=== PATIENT | female | born 1950 | race Caucasian/White ===

== ENCOUNTER → 2017-06-14 | Outpatient (CLI) | payer MEDICARE, OTHER ==
[~2017-06-14] MED LIST: ASPIRIN325; CO Q-10100 MG PO; Calcium PO; DETROL LA4 MG PO; DOCUSATE SODIU100 MG PO; ENOXAPARIN30 MG/0.3; FUROSEMIDE 20 M20 M1 PO; LEVOTHYROXIN0.137 M1 PO; LIPO PO; LISINOPRIL-HCT1 EACH PO; NAPROSYN375 MG PO; NORCO 5-325 TA1 EACH PO; OXYCODONE HCL5 M1 PO; POTASSIUM99 M1 PO; PRILOSEC 20 MG20 MG PO; VITAMIN D1000 UNI1 PO; VITAMIN D32000 UNIT PO; [UNRECOGNIZED DRUG - OTHER] PO; [UNRECOGNIZED DRUG - OTHER] PO
== END ==
LOC: M.NUC 06-09 09:44
DX: Z12.31 Encounter for screening mammogram for malignant neoplasm of breast (principal); Z96.641 Presence of right artificial hip joint

== ENCOUNTER → 2018-03-18 | Outpatient (CLI) | payer MEDICARE, OTHER | LOC: M.MRI 12:54 | DX: S83.211A Bucket-handle tear of medial meniscus, current injury, right knee, initial encounter (principal); M17.11 Unilateral primary osteoarthritis, right knee; M25.461 Effusion, right knee; M71.21 Synovial cyst of popliteal space [Baker], right knee; X58.XXXA Exposure to other specified factors, initial encounter; Y93.89 Activity, other specified; Y92.89 Other specified places as the place of occurrence of the external cause; Y99.8 Other external cause status; W10.8XXA Fall (on) (from) other stairs and steps, initial encounter ==

== ENCOUNTER → 2018-03-25 | Outpatient (CLI) | payer MEDICARE, OTHER | LOC: M.LAB 04:31 | DX: Z01.812 Encounter for preprocedural laboratory examination (principal) ==

== ENCOUNTER → 2018-10-12 | Outpatient (CLI) | payer MEDICARE, OTHER ==
--- NOTE | 2018-10-13 08:42 | CARDNUC ---
[place] [address] CARDIAC NUCLEAR IMAGING REPORT Name: JUNIOR ZAPIEN Room: [facility]#: [id number] Admission: 10/12/18 Attend Phys: Mc Pinzon MD Discharge: Date of : 52 Date of Service: 10/13/18 0842 Report #: [id number] THIS REPORT FOR: //name// APPROVED REPORT Study performed: 10/12/2018 10:15:43 Exam: Nuclear Stress Test Indication: Chest pain, Palpitations , Dyspnea Patient Location: Out-Patient Stress Tech: Sarah Augustine Stress Nurse: Irene Sanabria RN Ht: 5 ft 6 in Wt: 185 lbs BSA: 1.93 m2 BMI: 29.85 Medical History Medical History: hypertenson Medications: lisinopril, lisinopril/hctz Allergies: penicillin, sulfa, codeine Cardiac Risk Factors: age, hypertension,family hx Exercise History: Physically active Stress Test Details Stress Test: Pharmacologic stress testing performed using 0.4 mg of regadenoson per 5 mL given IV over 10 seconds. Reason for pharmacologic stress test: physical limitation. HR Resting HR: 78 bpm Max Heart Rate (APMHR): 154 bpm Max HR Achieved: 110 bpm Target HR (85% APMHR): 130 bpm % of APMHR: 71 Recovery HR: 98 bpm BP Resting BP: 191/95 mmHg Max BP: 178/76 mmHg ECG Resting ECG: Sinus Rhythm Stress ECG: Sinus Tachycardia ST Change: None Arrhythmia: None Recovery ECG: Sinus Rhythm Recovery ST Change: [place] [address] CARDIAC NUCLEAR IMAGING REPORT Name: JUNIOR ZAPIEN Room: [facility]#: [id number] Admission: 10/12/18 Attend Phys: Mc Pinzon MD Discharge: Date of : 52 Date of Service: 10/13/18 0842 Report #: [id number] Recovery Arrhythmia: None Clinical Reason for Termination: Completed protocol Exercise duration: 0 min sec Exercise capacity: 1 METs the patient tolerated Lexiscan infusion without significant symptoms. Nurse Comments pt had recent knee replacement and hip surgery Stress ECG Conclusion The baseline 12-lead EKG show sinus rhythm without significant ST or T wave abnormality. EKGs obtained during and post Lexiscan infusion show sinus rhythm and sinus tachycardia with no significant ST or T wave changes when baseline. There were no stress-induced arrhythmias. NM EXAM: Myocardial Perfusion REST/STRESS Imaging Protocol: Rest Tc-99m/Stress Tc-99m 1 day Resting Data Rest SPECT myocardial perfusion imaging was performed in supine position 30 minutes following the intravenous injection of 12.0 mCi of Tc-99m Sestamibi. Time of rest injection: 07:50 The images were gated to evaluate regional wall motion and calculate left ventricular ejection fraction. Administration Route: IV Administration Site: Right Wrist Pharmacologic Stress Pharmacologic stress test was performed by injecting Regadenoson 0.4 mg IV push followed by the intravenous injection of 29.0 mCi of Tc-99m Sestamibi. Time of stress injection: 10:25 Administration Route: IV Administration Site: Right Wrist Heart Rate at time of stress injection: 110 bpm. Gated Stress SPECT was performed 40 minutes after stress injection. The images were gated to evaluate regional wall motion and calculate left ventricular ejection fraction. Prone [place] [address] CARDIAC NUCLEAR IMAGING REPORT Name: JUNIOR ZAPIEN Room: [facility]#: [id number] Admission: 10/12/18 Attend Phys: Mc Pinzon MD Discharge: Date of : 52 Date of Service: 10/13/18 0842 Report #: [id number] Study Quality Study: Good Artifact: No artifact Study Data At rest, the left ventricular ejection fraction was 73%.. Post stress, the left ventricular ejection was 81%.. TID = 0.96. Perfusion Normal left ventricular perfusion. Wall Motion Normal left ventricular wall motion. Nuclear Conclusion ECG Findings: negative for ischemia Clinical Findings: negative for ischemia Nuclear Findings: negative for ischemia Exercise Capacity: not assessed Left Ventricular Function: normal Risk Study: low Myocardial perfusion images show no defect to suggest infarct or ischemia. Left ventricular systolic function is normal on gated studies. This is a low risk study. <Conclusion> The baseline 12-lead EKG show sinus rhythm without significant ST or T wave abnormality. EKGs obtained during and post Lexiscan infusion show sinus rhythm and sinus tachycardia with no significant ST or T wave changes when baseline. There were no stress-induced arrhythmias. <ELECTRONICALLY SIGNED> By: Gopi Solano MD, [facility] 10/13/18 0842 1 Gopi Solano MD, FACC /INF
== END ==
LOC: M.NUC 10-05 12:12 → M.CRD 08:00 → M.NUC 08:30
DX: R07.89 Other chest pain (principal); R06.00 Dyspnea, unspecified; R00.2 Palpitations

== ENCOUNTER 2018-11-25 11:08 | Inpatient (IN) | payer MEDICARE, OTHER ==
[2018-11-10 08:58] LABS: ABSOLUTE BASOPHILS 0.1 thou/uL (0.0-0.2); ABSOLUTE EOSINOPHILS 0.4 thou/uL (0.0-0.7); ABSOLUTE LYMPHOCYTES 2.9 thou/uL (0.8-5.3); ABSOLUTE MONOCYTES 0.7 thou/uL (0.0-1.2); ABSOLUTE NEUTROPHILS 4.9 thou/uL (1.6-8.1); BASOPHILS 0.7 %; HEMATOCRIT 44.2 % (37.0-47.0); HEMOGLOBIN 15.3 gm/dL (12.0-15.0); LYMPHOCYTES 32.8 %; MCH 32.3 pg (26.0-34.0); MCHC 34.7 g/dL (28.0-37.0); MCV 93.3 fL (80.0-100.0); MONOCYTES 7.5 %; NUCLEATED RBCS 0 /100WBC; PLATELET COUNT* 359 thou/uL (150-400); RBC 4.74 mil/uL (4.20-5.00); RDW-CV 13.6 % (10.5-14.5); WBC 8.8 thou/uL (4.0-11.0)
[2018-11-10 09:07] LABS: CALCIUM 9.2 mg/dL (8.5-10.1); CREATININE 0.8 mg/dL (0.6-1.3); POTASSIUM 4.5 mmol/L (3.5-5.1)
[2018-11-10 09:12] LABS: ALBUMIN 4.3 g/dL (3.4-5.0); TOTAL BILIRUBIN 0.4 mg/dL (<0.1-1.0)
--- NOTE | 2018-11-10 18:05 | EKG ---
[place] [address] ELECTROCARDIOGRAM REPORT Name: JUNIOR ZAPIEN Room: [facility]#: [id number] Admission: Attend Phys: Bo Farris DO Discharge: Date of : 52 Report #: [id number] THIS REPORT FOR: //name// [facility] Test Date: 2018-11-10 Test Time: 09:11:38 Pat Name: JUNIOR ZAPIEN Department: Room: Gender: F Health Program Specialist: : 1950 Requested By: Bo Farris Order Number: [id number] Reading : Abner Jaramillo Measurements Intervals [place] Rate: 87 P: 34 MN: 174 QRS: -37 QRSD: 97 T: 38 QT: 383 QTc: 461 Interpretive Statements Sinus rhythm Left axis deviation Compared to ECG 11/10/2012 15:50:00 Left-axis deviation now present Electronically Signed On 11-10-2018 18:05:35 CDT by Abner Jaramillo [email or web address] <ELECTRONICALLY SIGNED> By: Tonio Jaramillo MD, [facility] 11/10/18 1805 0 0 Tonio Jaramillo MD, FACC /EPI
[2018-11-11 02:06] LABS: GLYCOHEMOGLOBIN (HGB A1C) 5.3 % (4.8-5.6)
[~2018-11-25] VITALS: Ht 167.6 cm; Wt 94.8 kg
[~2018-11-25 11:08] MED LIST changes: +LISINOPRIL10 MG PO; +SYNTHROID112 MC1 PO; +TOLTERODINE TART4 MG PO
[2018-11-25 12:00] VITALS: BP 168/79
[2018-11-25 18:20] VITALS: BP 178/82
--- NOTE | 2018-11-25 18:20 | NUR ---
RECEIVED PT REPORT FROM PACU 0. PT HAD R TOTAL KNEE REPLACEMENT. GET SITUATED TO ROOM. TELE IN PLACED. TRACING SR. PT AOX4, UP WITH ASSIST, O2 SAT 90'S 3L NC. PT COMPLAINS OF PAIN. LAST BM 11/25/18. LUNG SOUND CLEAR. ADMISSION ASSESSMENT CHARTED. GIVE REPORT TO KARY.
[2018-11-25 19:40] VITALS: BP 148/81
[2018-11-26] VITALS (8 sets, daily range): BP systolic 117–166; BP diastolic 54–95
[2018-11-26 04:29] LABS: HEMATOCRIT 36.8 % (37.0-47.0); HEMOGLOBIN 12.7 gm/dL (12.0-15.0); MCH 32.5 pg (26.0-34.0); MCHC 34.6 g/dL (28.0-37.0); MCV 94.1 fL (80.0-100.0); MPV 7.2 fl. (7.2-11.1); RBC 3.91 mil/uL (4.20-5.00); RDW-CV 12.9 % (10.5-14.5); WBC 9.2 thou/uL (4.0-11.0)
[2018-11-26 04:42] LABS: CALCIUM 8.8 mg/dL (8.5-10.1); CREATININE 0.7 mg/dL (0.6-1.3); MAGNESIUM 1.8 mg/dL (1.8-2.4); POTASSIUM 3.9 mmol/L (3.5-5.1)
--- NOTE | 2018-11-26 07:31 | NUR ---
PT CARE ASSUMED AT 1930. SAT MAINTAINED IN O2. ALERT AND ORIENTED X4. CALL LIGHT WITHIN REACH AND BED IN LOW POSITION. C/O PAIN, MEDICTAION GIVEN PER EMAR. HOURLY ROUNDING DONE FOR PT SAFETY.
--- NOTE | 2018-11-26 14:35 | NUR ---
ASSUMED PT CARE AT 0800, AOX4, UP WITH ASSIST, O2 SAT 90'S 4L NC. PT M/S. PT COMPLAINS OF R KNEE PAIN. PAIN MEDS GIVEN. VSS, AM ASSESSMENT CHARTED. MEDS GIVEN PER MAR, CALL LIGHT WITHIN REACH, WILL CONTINUE TO MONITOR.
--- NOTE | 2018-11-26 15:38 | NUR ---
MET WITH PT TO DISCUSS HOME SITUATION/DC PLANNING. PT LIVES ALONE, HER S/O FITO WILL BE 'IN AND OUT' TO ASSIST WITH HER CARES. SHE HAS WALKER AND SHOWER SEAT. PT [facility] AND WANTS TO USE THEM AGAIN. FAXED OVER INITIAL REFERRAL. THEY WILL NEEDS CALLED AND DC ORDERS FAXED WHEN DC'D. CALLED IN ELIQUIS SCRIPT TO [facility]. AWAIT CALL BACK WITH COST. ANTICIPATE DC IN 1-2 DAYS. WILL FOLLOW [facility] [phone] FAX [phone] [facility] [phone]
--- NOTE | 2018-11-26 18:53 | NUR ---
165: PATIENT REC'D TO RM 108 FROM TELE FLOOR, PER BED W/ TELE STAFF PRESENT. REPORT REC'D FROM CASE ASSISTANT. PATIENT ALERT AND ORIENTED X4, VISITOR PRESENT. IV SITE NOTED INTACT, SCANT AMT RED DRNG NOTED UNDER DRSG. SURG KNEE DRSG NOTED WNL, CDI. THIGH HIGH TEDS ON BLE. O2 4L/NC. NO SOB NOTED. 1852: PATIENT PLEASANT AND COOPERATIVE. FT PUMP SCDs ON BLE. CALL LIGHT IN REACH. 02 4L/NC SAT 94%. +RETURN DEMO ON USE OF INC SPIROMETER. PATIENT ENC TO USE 10X/HR WHILE AWAKE, ENC TO CDB. PATIENT STATES VERBALLY OF BREATHING EDUCATION. CURRENTLY RESTING IN BED. SEE MAR. HRLY ROUNDS DONE. ~LIZETTERN
[2018-11-27] VITALS: BP 161/78
[2018-11-27 03:47] VITALS: BP 123/72
[2018-11-27 04:34] LABS: HEMATOCRIT 33.1 % (37.0-47.0); HEMOGLOBIN 11.2 gm/dL (12.0-15.0)
--- NOTE | 2018-11-27 05:00 | NUR ---
ASSUMED CARE OF PT AFTER REPORT AT 1930. PT A&OX4. VSS. PHYSICAL ASSESSMENT COMPLETED AND CHARTED. PT ON O2 AT 4L NC. PT UPSTANDBY TO BSC. PT COMPLAINED OF RIGHT KNEE PAIN- MEDS GIVEN PER MAR. PT ABLE TO SLEEP WELL ON BED. CALL LIGHT WITHIN REACH.
[2018-11-27 08:50] VITALS: BP 115/57
[2018-11-27 15:10] VITALS: BP 113/62
--- NOTE | 2018-11-27 19:00 | NUR ---
PATIENT PLEASANT AND COOPERATIVE THRU SHIFT. WORKING WELL W/ THERAPIES. AMB USING FWW W/ GAIT BELT, SBA FOR TRANSFERS AND AMBULATION. POLAR PACK ORDERED, FUNCTIONING APPROP. THIGH HIGH TEDS ON BLE. PATIENT STATES MORE ACTIVE, DECLINES NEED FOR SCDs TO BILAT FEET THIS AFTERNOON, STATES THAT SHE HAS BEEN DOING HER EXERCISES IN BED PER THERAPY RECOMMENDATIONS. PATIENT STATES USING HER INC SPIROMETER 10X EVERY HR AND CDB INSTRUCTED. IV CATH SITE NOTED WNL, FLUSHES EASILY. 4L/NC THIS AM, DOWN TO RA THIS AFTERNOON. PAIN CONTROL BETTER THIS SHIFT. PATIENT ENC TO TRY AND NOT USE MORPHINE FOR PAIN SHE WILL NOT HAVE IV AT HOME. SEE MAR. PATIENT STATES VERBALLY OF UNDERSTANDING OF ALL INSTRUCTIONS. CALL LIGHT IN REACH. WATCHING TV IN BED AT THIS TIME. HRLY ROUNDS DONE. ~TJRN
[2018-11-27 20:30] VITALS: BP 125/66
--- NOTE | 2018-11-28 05:15 | NUR ---
ON 1-2L OF O2 BY NS. SAT 92% MEDS GIVEN ORDERED. PAIN CONTROLLED BY OXY IR AND SCHEDULED TRAMADOL. UP TO THE BATHROOM WITH RAFIA ASSIST. DRESSING TO RT KNEE C/D/I. [facility] O[facility]IA ARROYO IN PLACE. HOURLY ROUNDING COMPLETED. WILL CONTINUE TO MONITOR.
[2018-11-28 08:10] VITALS: BP 150/73
[2018-11-28] MEDS ORDERED: TRAMADOL 50 MG50 MG PO (10:05)
[2018-11-28] MEDS ORDERED: ELIQUIS5 MG PO (10:05)
[2018-11-28] MEDS ORDERED: PERCOCET 5-3251 EACH PO (10:05)
[2018-11-28] MEDS ORDERED: NAPROXEN375 MG PO (10:05)
--- NOTE | 2018-11-28 10:34 | NUR ---
PT.HAS DISCHARGE ORDERS FOR TODAY FROM [facility]. NOTIFIED [facility] AND FAXED ORDERS TO HER [phone]. HOME HEALTH WILL CALL HER TO SET UP APPT. PT.INFORMED OF ABOVE.
[2018-11-28 13:55] VITALS: BP 117/54
[2018-11-28 14:08] VITALS: BP 117/54
[2018-11-28 14:29] VITALS: BP 117/54
--- NOTE | 2018-11-28 14:29 | NUR ---
PATIENT DISCHARGED FROM UNIT AT 1420. ALERT AND ORIENTED X 4. AFEBRILE. UP WITH ASSISTANCE WITH GAIT BELT AND WALKER. IV DISCONTINUED. PAIN BEING MANAGED WITH PO MEDICATION. DENIES NAUSEA. O2 SAT 93% ON ROOM AIR. DISCHARGE INSTRUCTIONS, MEDICATION INFORMATION, AND SCRIPTS GIVEN TO PATIENT. LEFT WITH SIGNIFICANT OTHER VIA CAR.
--- NOTE | 2018-11-30 06:31 | OP ---
[facility] [address] [place] [address] OPERATIVE REPORT Name: JUNIOR ZAPIEN Room: [address]#: [id number] Admission: 11/25/18 Attend Phys: Malcolm Herring Discharge: 11/28/18 Date of : 52 Report #: [id number] THIS REPORT FOR: //name// CC: Bo Mckinney DATE OF SERVICE: 11/25/2018 PREOPERATIVE DIAGNOSIS: Severe tricompartmental osteoarthritis of the right knee. POSTOPERATIVE DIAGNOSIS: Severe tricompartmental osteoarthritis of the right knee. SURGERY PERFORMED: MicroPort cemented 3-component right total knee arthroplasty with the femur size 5, 32 patella. The patient did have a 12 mm polyethylene tray and a 5 right tibia. ANTIBIOTICS: Did receive Ancef 2 grams IV preoperatively. SURGEON: Bo Farris DO ELECTRICAL AND RADIO MOCK UP MECHANIC: Tre. SECOND ASSISTED LIVING COORDINATOR: ____. ANESTHESIA: General anesthetic and adductor block to the right leg. ESTIMATED BLOOD LOSS: 100 mL. DRAINS: She has no drains. SPECIMENS: None. COMPLICATIONS: None. GROSS FINDINGS: Prior to surgery, this very pleasant patient had definitely failed all conservative care measures for a painful osteoarthritic right knee. Been through the course of all conservative care measures, therapy, strengthening exercises, NSAIDs injections and also despite this, her qojf-rx-jkgr deformity was bad enough, would not let her accomplish her ADLs. The patient at this point in time elect for the right total knee and intraoperative findings correlated with totally eburnated bone across the medial femoral condyle, the medial tibia side as well as severe arthritic changes noted throughout the femur. The patella and osteophytic lipping noted medially and [facility] [address] [place] [address] OPERATIVE REPORT Name: JUNIOR ZAPIEN Room: [address]#: [id number] Admission: 11/25/18 Attend Phys: Malcolm Herring Discharge: 11/28/18 Date of : 52 Report #: [id number] laterally on the femur. Post-placement of the right total knee arthroplasty, the patient was placed through extension, mid flexion and flexion with a very stable arc of motion throughout. SURGERY IN DETAIL: The patient was taken to the operating room and placed on the table, given the benefit of general anesthetic. She had a well-padded tourniquet placed high on the right leg. She did have an adductor block by Anesthesia preoperatively as well. She underwent a Hibiclens scrub, chlorhexidine prep and sterile draping for right knee surgery. Timeout was called and verified with everyone in the room. At this point in time, surgery began with a midline incision through skin and subcutaneous tissues, maintaining hemostasis throughout surgery. A second medial parapatellar capsular incision was made with a new blade maintaining hemostasis. Then, the patella was everted, knee flexed 90 degrees. Distal femoral drill hole was made. I did a 5-degree angle cut on the distal femur, taking the normal 10 mm of bone off. I had a nice butterfly femoral and distal end at this stage and then I went to an external guide across the ankle and secured in place, measuring off the high lateral side, the tibial cutting block. I did do oscillating saw resection of the tibia. Once I did that, held the leg in extension. The extension block fit quite nicely and it was felt to be very stable. At this point in time, surgery now continued on her going back and sizing the femur to #5, appropriately the 4-in-1 block was applied and all cuts were made with oscillating saw. The cutting block was removed as well as all the excess bone that was cut. At this point in time, I went now back to the tibia, elected to look at the base plates 4 and 5 and the 5 fit wall to wall all the way around the tibia proximally, so we secured in place my pins followed with placement of the femur #5. At this time, I tried a #10 trial polyethylene and it fit quite well and she then had a freehand cut of the patella, sizing her to 32. The trochlea was cut on the femur in routine fashion. Patella tracked well. At this time, I now Esmarched the extremity, went ahead and removed that femoral component after that. The tibia reamer and cruciform cut were next made following with removal of the tibia tray. Patella again stated earlier was sized to 32, appropriately drilled and fit well. All trial components were now removed from the knee, preparing for a 1-stage cement technique. At this point in time, I did go ahead and cemented in the tibia baseplate first. It lined up initially with the middle third of the tubercle and right at the center of the ankle second ray when the trial jig was in place. All excess cement was removed. Femur was cemented in place likewise now. I tightened her with a 12 mm trial polyethylene in the tibia tray, held that leg in extension until cement had hardened, cemented into the patella. I did remove all excess cement. Once cement hardened, I took out the trial component of the spacer, removed any excess potential cement debris and pulsatile lavage irrigated her. At this stage, I did now see a real polyethylene 12 mm into the tibia tray fit quite nicely. The leg was placed through arc of motion, very stable through the entire arc of motion. Once this was accomplished, TXA was placed in the knee for 3 minutes. The normal saline wash was applied. I did release the tourniquet with maintained hemostasis, [place] [address] OPERATIVE REPORT Name: JUNIOR ZAPIEN Room: [address]#: [id number] Admission: 11/25/18 Attend Phys: Malcolm Herring Discharge: 11/28/18 Date of : 52 Report #: [id number] closed the capsule with 0 Vicryl and Ethibond #1. Subcutaneous tissues, 2-0 Monocryl followed with a Stratafix and Dermabond to the skin. Mepilex dressing was applied. The patient did have a secondary diagnosis right shoulder cuff tendinopathy. We discussed prior to surgery doing an injection for her pain, help her afterwards with weightbearing with a walker. So, a timeout was called and verified for that. It was injected with 40 mg Kenalog, 2 mL of 1% Xylocaine. She tolerated it quite well. All questions were answered otherwise. It was my pleasure seeing and taking care of this very pleasant patient. I attest I was present for all critical aspects of the surgery. <ELECTRONICALLY SIGNED> By: Bo Farris DO 11/30/18 0631 1416 [id number] lauryn Keller
== END 2018-11-28 14:45 | disposition home health service (06) | DRG 470 ==
LOC: M.SUR 11:08 → M.TBA 14:35 → M.ORTHSURG 14:35 → M.2W 18:09 → M.ORTHSURG 11-26 17:07
PROVIDERS: Internal Medicine; Orthopaedic Surgery; ADMIT Internal Medicine
PROC: 0SRC0J9 Replacement of Right Knee Joint with Synthetic Substitute, Cemented, Open Approach (ICD-10-PCS; principal; 2018-11-25)
PROC: 5A09357 Assistance with Respiratory Ventilation, Less than 24 Consecutive Hours, Continuous Positive Airway Pressure (ICD-10-PCS; principal; 2018-11-25)
PROC: 3E0234Z Introduction of Serum, Toxoid and Vaccine into Muscle, Percutaneous Approach (ICD-10-PCS; 2018-11-26)
DX: M17.11 Unilateral primary osteoarthritis, right knee (principal); J98.11 Atelectasis; E03.9 Hypothyroidism, unspecified; I10 Essential (primary) hypertension; R09.02 Hypoxemia; Z88.6 Allergy status to analgesic agent; Z88.0 Allergy status to penicillin; Z88.2 Allergy status to sulfonamides; Z79.899 Other long term (current) drug therapy; Z72.0 Tobacco use; Z23 Encounter for immunization

== ENCOUNTER → 2019-02-02 | Outpatient (CLI) | payer MEDICARE, OTHER ==
[~2019-02-02] MED LIST changes: +ELIQUIS5 MG PO; +NAPROXEN375 MG PO; +PERCOCET 5-3251 EACH PO; +TRAMADOL 50 MG50 MG PO
== END ==
LOC: M.LAB 04:55
DX: E87.6 Hypokalemia (principal)

== ENCOUNTER → 2019-08-28 | Outpatient (CLI) | payer MEDICARE, OTHER | LOC: M.MRI 11:19 | PROVIDERS: ATTEND Family Medicine | DX: S09.90XA Unspecified injury of head, initial encounter (principal); J34.89 Other specified disorders of nose and nasal sinuses; R29.90 Unspecified symptoms and signs involving the nervous system; X58.XXXA Exposure to other specified factors, initial encounter; Y93.89 Activity, other specified; Y92.89 Other specified places as the place of occurrence of the external cause; Y99.8 Other external cause status ==

== ENCOUNTER → 2019-12-11 | Outpatient (CLI) | payer MEDICARE, OTHER ==
[~2019-12-11] MED LIST changes: +CIPRO500 M1 PO; +CYTOMEL 25 MCG25 MC1 PO; +OXYCODONE HCL 55 MG PO; -SYNTHROID112 MC1 PO; +SYNTHROID88 MC1 PO
[2019-12-11 10:00] LABS: ABSOLUTE BASOPHILS 0.1 thou/uL (0.0-0.2); ABSOLUTE EOSINOPHILS 0.3 thou/uL (0.0-0.7); ABSOLUTE LYMPHOCYTES 2.3 thou/uL (0.8-5.3); ABSOLUTE MONOCYTES 0.5 thou/uL (0.0-1.2); BASOPHILS 0.7 %; EOSINOPHILS 3.8 %; HEMATOCRIT 40.9 % (37.0-47.0); HEMOGLOBIN 13.8 gm/dL (12.0-15.0); LYMPHOCYTES 28.1 %; MCHC 33.7 g/dL (28.0-37.0); MONOCYTES 5.9 %; MPV 6.7 fl. (7.2-11.1); NUCLEATED RBCS 0 /100WBC; PLATELET COUNT* 330 thou/uL (150-400); POLYS 61.5 %; RBC 4.59 mil/uL (4.20-5.00); RDW-CV 13.9 % (10.5-14.5); WBC 8.1 thou/uL (4.0-11.0)
[2019-12-11 10:34] LABS: APTT 23.8 Seconds (25.0-31.3); PROTIME 9.8 Seconds (9.20-11.50)
[2019-12-11 10:44] LABS: CALCIUM 9.5 mg/dL (8.5-10.1); CREATININE 0.9 mg/dL (0.6-1.3); POTASSIUM 4.2 mmol/L (3.5-5.1); TOTAL BILIRUBIN 0.5 mg/dL (<0.1-1.0); TOTAL PROTEIN 7.4 g/dL (6.4-8.2)
[2019-12-11 11:31] LABS: ESR (SEDRATE) 15 mm/hr (0-30)
--- NOTE | 2019-12-11 18:32 | EKG ---
[place] [address] ELECTROCARDIOGRAM REPORT Name: JUNIOR ZAPIEN Room: [facility]#: [id number] Admission: 12/11/19 Attend Phys: Malcolm Gacria Discharge: Date of : 52 Date of Service: 12/11/19 1019 Report #: [id number] THIS REPORT FOR: //name// [facility] Test Date: 2019-12-11 Test Time: 10:19:53 Pat Name: JUNIOR ZAPIEN Department: Room: Gender: F Stylist Apprentice: : 1950 Requested By: Jerrod Medina Order Number: [id number] Reading MD: Gopi Solano Measurements Intervals [place] Rate: 67 P: -5 HI: 190 QRS: -25 QRSD: 95 T: 30 QT: 417 QTc: 441 Interpretive Statements Sinus rhythm Borderline left axis deviation Low voltage, precordial leads Compared to ECG 11/10/2018 09:11:38 Low QRS voltage now present Electronically Signed On 12-11-2019 18:32:16 CDT by Gopi Solano [email or web address] <ELECTRONICALLY SIGNED> By: Gopi Solano MD, FACC 12/11/19 1832 1019 1019 Gopi Solano MD, FAC /EPI
== END ==
LOC: M.LAB 09:45
PROVIDERS: ATTEND Orthopaedic Surgery
DX: Z01.812 Encounter for preprocedural laboratory examination (principal); Z01.818 Encounter for other preprocedural examination; M16.12 Unilateral primary osteoarthritis, left hip; Z20.828 Contact with and (suspected) exposure to other viral communicable diseases

== ENCOUNTER 2019-12-15 08:26 | Inpatient (IN) | payer MEDICARE, OTHER ==
[~2019-12-15] VITALS: Ht 167.6 cm; Wt 81.2 kg
--- NOTE | ~2019-12-15 | OP ---
[address] [address] OPERATIVE REPORT Name: JUNIOR ZAPIEN Room: [address]#: [id number] Admission: 12/17/19 Attend Phys: Malcolm Herring Discharge: 12/19/19 Date of : 52 Report #: [id number] THIS REPORT FOR: //name// cc: Aimee Napier Linda J. DO ~ CC: Jerrod Mckinney PREOPERATIVE DIAGNOSIS: Primary osteoarthritis, left hip. POSTOPERATIVE DIAGNOSIS: Primary osteoarthritis, left hip. PROCEDURE: Left total hip arthroplasty with direct anterior approach. SURGEON: Jerrod Medina DO CONTAINERS SALES REPRESENTATIVE: Rajiv Zhou DO SECOND PIN MACHINE OPERATOR: Germaine Magaña DO ANESTHESIA: General with local periarticular block. FLUIDS: Lactated Ringer's. ANTIBIOTICS: Clindamycin 900 mg IV preoperatively. DRAINS: None. SPECIMENS: None. ESTIMATED BLOOD LOSS: 200 mL. COMPLICATIONS: None. ORTHOPEDIC IMPLANTS: Biomet G7 52-mm acetabular shell; two 6.5-mm bone screws, both 25 mm in length for additional acetabular fixation; a 36-mm +3-mm neck length modular ceramic head; a size 9 high offset Taperloc complete stem and a 36-mm inner diameter vitamin E highly cross-linked polyethylene liner high wall. Other 1 gram of tranexamic acid IV preoperatively. HISTORY: The patient is a 69-year-old female with longstanding history of left hip pain. She has known advanced osteoarthritis of the left hip. Radiographs show xnxb-eu-[id number] articulation, subchondral sclerosis and periarticular osteophytes. She presents today for elective left total hip arthroplasty, direct anterior approach. Risks, benefits, complications, indications, [place] [address] OPERATIVE REPORT Name: JUNIOR ZAPIEN Room: [address]#: [id number] Admission: 12/17/19 Attend Phys: Malcolm Herring Discharge: 12/19/19 Date of : 52 Report #: [id number] alternatives were discussed. She has voiced understanding, signed consent and elected to proceed. Risks include but not limited to fracture, infection, neurovascular injury, continued pain, loss of motion, need for subsequent revision surgery, leg length inequality, instability, dislocation of left hip joint, DVT, PE, WA, stroke, and even . DESCRIPTION OF PROCEDURE: The patient was taken to the operative suite, placed in supine position, given benefit of general anesthetic, placed on a Sanford table against the perineal post. Both feet were placed in traction boots. All bony prominences were well padded. Left hip was sterilely prepped and draped in the usual fashion. Proper operative site was confirmed through standard timeout technique. Direct anterior approach was taken to the left hip. Lateral circumflex vessels were identified, cauterized and incised. Anterior capsule was exposed. It was treated with Aquamantys and an anterior capsulectomy was performed. Femoral neck cut was made with an oscillating saw and utilizing a napkin ring technique, the head and neck were removed. Retractors were repositioned for acetabular exposure. Labral debridement was performed with Bovie knife and then reaming was initiated up in a sequential fashion to a size 51 reamer. C-arm fluoroscopic images confirmed appropriate depth and circumference of reaming. Thorough irrigation showed circumferential punctate bleeding. I then implanted the above-mentioned acetabular shell in a press-fit fashion. Under C-arm fluoroscopic guidance, two 6.5-mm bone screws were placed for additional acetabular fixation and the above-mentioned polyethylene liner was implanted. I turned my attention to the proximal femur. Appropriate capsular release was performed along with leg positioning and the external elevating hook to the Sanford table. I was able to achieve excellent proximal femoral exposure. Intramedullary canal was accessed with rat tail rasp and then broaching was initiated upwards in a sequential fashion to a size 9 broach was left in place for trialing. Trialing of a high offset +3-mm neck length construct provided excellent intraoperative stability. C-arm fluoroscopic images confirmed appropriate implant placement sizing as well as leg length and offset. The hip was dislocated. Trials were removed. Thorough irrigation was performed. Final stem was implanted in a press-fit fashion. The final head was impacted on the Manzano taper. The hip was reduced. Intraoperative stability checks were excellent. Final C-arm fluoroscopic images confirmed appropriate implant placement sizing as well as leg length and offset. Thorough irrigation was performed. Hemostasis shown to be appropriate. Periarticular blocks utilized containing Marcaine, morphine, Toradol, epinephrine and normal saline. Tensor fascia was closed with #1 Stratafix suture in a running fashion. Subcuticular closure was performed with 2-0 Vicryl in a simple inverted interrupted fashion. The skin was closed with a running 3-0 Stratafix subcuticular suture with Dermabond on the skin. Sterile dressings were applied. The patient tolerated the procedure well. Sponge and needle counts were correct x 2. The patient was taken to the recovery room [place] [address] OPERATIVE REPORT Name: RUPALIJUNIOR Malcolm Room: [address]#: [id number] Admission: 12/17/19 Attend Phys: Malcolm Herring Discharge: 12/19/19 Date of : 52 Report #: [id number] IJerrod DO, attest that I was present and scrubbed in for the entirety of the case excluding skin closure. By: 0906 1002Jerrod Medina DO /nt
[~2019-12-15 08:26] MED LIST changes: -CIPRO500 M1 PO; -OXYCODONE HCL 55 MG PO
[2019-12-15 15:00] VITALS: BP 148/75
[2019-12-15 21:00] VITALS: BP 163/78
[2019-12-16 00:10] VITALS: BP 113/51
[2019-12-16 03:49] LABS: HEMOGLOBIN 12.7 gm/dL (12.0-15.0)
[2019-12-16 04:14] VITALS: BP 138/67
[2019-12-16 07:40] VITALS: BP 115/60
[2019-12-16 08:32] LABS: URINE BILIRUBIN NEGATIVE (Negative); URINE BLOOD 2+ (Negative); URINE CLARITY CLEAR; URINE COLOR STRAW; URINE GLUCOSE-RANDOM NEGATIVE (Negative); URINE KETONES NEGATIVE (Negative); URINE LEUKOCYTES-REFLEX 1+ (Negative); URINE NITRITE-REFLEX NEGATIVE (Negative); URINE PROTEIN NEGATIVE (Negative); URINE SPECIFIC GRAVITY <= 1.005 (1.005-1.030); URINE UROBILINOGEN 0.2 E.U./dl (0.2-1.0)
[2019-12-16 08:39] LABS: SQUAMOUS >10 Many /LPF (0-3); URINE WBC-REFLEX 6-15 Few /HPF (0-5)
[2019-12-16 08:40] LABS: BACTERIA-REFLEX >30 Many /HPF (None Seen); CASTS None Seen /LPF (None Seen); CRYSTALS None Seen /LPF (None Seen); MUCUS None Seen strn/LPF (None Seen); URINE RBC 0-2 Rare /HPF (0-2); WBC CLUMPS Few (None Seen)
[2019-12-16 09:08] VITALS: BP 115/60
[2019-12-16] MEDS ORDERED: ELIQUIS5 MG PO (10:55)
[2019-12-16] MEDS ORDERED: OXYCODONE HCL 55 MG PO (10:55)
[2019-12-16 15:51] VITALS: BP 109/49
[2019-12-16 20:05] VITALS: BP 133/60
[2019-12-17] VITALS: BP 152/69
[2019-12-17 04:18] VITALS: BP 114/54
[2019-12-17 04:56] LABS: HEMATOCRIT 31.6 % (37.0-47.0); HEMOGLOBIN 10.8 gm/dL (12.0-15.0)
[2019-12-17 07:25] VITALS: BP 124/56
[2019-12-17 10:48] LABS: ABSOLUTE BASOPHILS 0.1 thou/uL (0.0-0.2); ABSOLUTE EOSINOPHILS 0.1 thou/uL (0.0-0.7); ABSOLUTE LYMPHOCYTES 2.1 thou/uL (0.8-5.3); ABSOLUTE NEUTROPHILS 7.7 thou/uL (1.6-8.1); BASOPHILS 0.6 %; HEMATOCRIT 32.8 % (37.0-47.0); HEMOGLOBIN 11.1 gm/dL (12.0-15.0); MCH 30.2 pg (26.0-34.0); MCHC 33.8 g/dL (28.0-37.0); MCV 89.3 fL (80.0-100.0); MONOCYTES 9.3 %; NUCLEATED RBCS 0 /100WBC; PLATELET COUNT* 266 thou/uL (150-400); POLYS 70.1 %; RBC 3.68 mil/uL (4.20-5.00)
[2019-12-17 11:08] LABS: ALBUMIN 2.9 g/dL (3.4-5.0); CALCIUM 8.6 mg/dL (8.5-10.1); CREATININE 0.9 mg/dL (0.6-1.3); POTASSIUM 3.6 mmol/L (3.5-5.1); TOTAL BILIRUBIN 0.7 mg/dL (<0.1-1.0); TOTAL PROTEIN 6.9 g/dL (6.4-8.2)
[2019-12-17 16:00] VITALS: BP 116/50
[2019-12-17 19:30] VITALS: BP 113/50
[2019-12-18 07:30] VITALS: BP 109/52
[2019-12-18 10:13] LABS: CREATININE 0.8 mg/dL (0.6-1.3); POTASSIUM 4.2 mmol/L (3.5-5.1)
[2019-12-18 15:18] VITALS: BP 109/40
[2019-12-18 20:16] VITALS: BP 118/53
[2019-12-19 05:18] LABS: ABSOLUTE EOSINOPHILS 0.2 thou/uL (0.0-0.7); ABSOLUTE LYMPHOCYTES 1.1 thou/uL (0.8-5.3); ABSOLUTE MONOCYTES 0.9 thou/uL (0.0-1.2); ABSOLUTE NEUTROPHILS 5.8 thou/uL (1.6-8.1); BASOPHILS 0.3 %; EOSINOPHILS 3.1 %; HEMOGLOBIN 9.9 gm/dL (12.0-15.0); LYMPHOCYTES 13.5 %; MCH 30.5 pg (26.0-34.0); MCHC 34.2 g/dL (28.0-37.0); MCV 89.4 fL (80.0-100.0); MONOCYTES 11.2 %; MPV 7.5 fl. (7.2-11.1); NUCLEATED RBCS 0 /100WBC; PLATELET COUNT* 270 thou/uL (150-400); POLYS 71.9 %; RBC 3.25 mil/uL (4.20-5.00); RDW-CV 13.6 % (10.5-14.5)
[2019-12-19 05:24] LABS: CALCIUM 8.4 mg/dL (8.5-10.1); CREATININE 0.8 mg/dL (0.6-1.3); POTASSIUM 3.3 mmol/L (3.5-5.1)
[2019-12-19 07:50] VITALS: BP 109/53
[2019-12-19 10:05] VITALS: BP 115/60
[2019-12-19] MEDS ORDERED: CIPRO500 M1 PO (10:21)
[2019-12-19 10:26] VITALS: BP 115/60
[2019-12-19 10:49] VITALS: BP 115/60
== END 2019-12-19 10:35 | disposition home or self-care (01) | DRG 470 ==
LOC: M.PRE → M.TBA 08:26 → M.ORTHSURG 09:07 → M.PRE 13:24 → M.ORTHSURG 15:21
PROVIDERS: Internal Medicine; Orthopaedic Surgery; ADMIT Internal Medicine; ATTEND Internal Medicine
PROC: 0SRB0JZ Replacement of Left Hip Joint with Synthetic Substitute, Open Approach (ICD-10-PCS; principal; 2019-12-17)
DX: M16.12 Unilateral primary osteoarthritis, left hip (principal); E87.1 Hypo-osmolality and hyponatremia; N39.0 Urinary tract infection, site not specified; J98.11 Atelectasis; R09.02 Hypoxemia; K21.9 Gastro-esophageal reflux disease without esophagitis; I10 Essential (primary) hypertension; E03.9 Hypothyroidism, unspecified; B96.1 Klebsiella pneumoniae [K. pneumoniae] as the cause of diseases classified elsewhere; Z96.1 Presence of intraocular lens; Z96.641 Presence of right artificial hip joint; Z96.651 Presence of right artificial knee joint; Z20.828 Contact with and (suspected) exposure to other viral communicable diseases; Z88.5 Allergy status to narcotic agent; Z88.0 Allergy status to penicillin; Z88.2 Allergy status to sulfonamides; Z79.899 Other long term (current) drug therapy; Z98.42 Cataract extraction status, left eye; Z98.41 Cataract extraction status, right eye; Z87.891 Personal history of nicotine dependence

== ENCOUNTER → 2020-06-14 | Outpatient (CLI) | payer MEDICARE, OTHER ==
[~2020-06-14] MED LIST changes: +CIPRO500 M1 PO; +OXYCODONE HCL 55 MG PO
[2020-06-14 11:14] LABS: ABSOLUTE BASOPHILS 0.1 thou/uL (0.0-0.2); ABSOLUTE EOSINOPHILS 0.2 thou/uL (0.0-0.7); ABSOLUTE LYMPHOCYTES 2.3 thou/uL (0.8-5.3); ABSOLUTE MONOCYTES 0.5 thou/uL (0.0-1.2); ABSOLUTE NEUTROPHILS 4.4 thou/uL (1.6-8.1); BASOPHILS 0.8 %; EOSINOPHILS 2.8 %; HEMATOCRIT 43.4 % (37.0-47.0); HEMOGLOBIN 14.6 gm/dL (12.0-15.0); LYMPHOCYTES 30.4 %; MCH 30.4 pg (26.0-34.0); MCHC 33.6 g/dL (28.0-37.0); MCV 90.6 fL (80.0-100.0); MONOCYTES 6.8 %; MPV 7.2 fl. (7.2-11.1); NUCLEATED RBCS 0 /100WBC; PLATELET COUNT* 339 thou/uL (150-400); POLYS 59.2 %; RBC 4.79 mil/uL (4.20-5.00); RDW-CV 13.5 % (10.5-14.5); WBC 7.4 thou/uL (4.0-11.0)
[2020-06-14 12:14] LABS: ESR (SEDRATE) 5 mm/hr (0-30)
== END ==
LOC: M.LAB 10:44
PROVIDERS: ATTEND Orthopaedic Surgery
DX: M25.551 Pain in right hip (principal)

== ENCOUNTER → 2020-06-20 | Outpatient (CLI) | payer MEDICARE, OTHER ==
[~2020-06-20] MED LIST changes: +HYDROCHLOROTHIA25 M1 PO; +NEURONTIN 300M300 M2 PO; +ONDANSETRON HCL4 M2 PO
== END ==
LOC: M.NUC 06-14 11:37
PROVIDERS: ATTEND Orthopaedic Surgery
DX: M16.11 Unilateral primary osteoarthritis, right hip (principal); M25.551 Pain in right hip

== ENCOUNTER → 2020-07-02 | Outpatient (CLI) | payer MEDICARE, OTHER ==
[2020-07-02 09:55] LABS: ABSOLUTE BASOPHILS 0.1 thou/uL (0.0-0.2); ABSOLUTE EOSINOPHILS 0.3 thou/uL (0.0-0.7); ABSOLUTE LYMPHOCYTES 2.6 thou/uL (0.8-5.3); ABSOLUTE MONOCYTES 0.5 thou/uL (0.0-1.2); ABSOLUTE NEUTROPHILS 5.3 thou/uL (1.6-8.1); BASOPHILS 0.7 %; EOSINOPHILS 3.1 %; HEMATOCRIT 43.9 % (37.0-47.0); HEMOGLOBIN 14.7 gm/dL (12.0-15.0); LYMPHOCYTES 29.9 %; MCH 30.5 pg (26.0-34.0); MCHC 33.4 g/dL (28.0-37.0); MCV 91.1 fL (80.0-100.0); MONOCYTES 6.1 %; MPV 7.1 fl. (7.2-11.1); NUCLEATED RBCS 0 /100WBC; PLATELET COUNT* 316 thou/uL (150-400); POLYS 60.2 %; RBC 4.82 mil/uL (4.20-5.00); RDW-CV 13.3 % (10.5-14.5); WBC 8.7 thou/uL (4.0-11.0)
[2020-07-02 10:26] LABS: PROTIME 10.2 Seconds (9.20-11.50)
[2020-07-02 10:35] LABS: ALBUMIN 4.2 g/dL (3.4-5.0); CALCIUM 9.4 mg/dL (8.5-10.1); CREATININE 0.7 mg/dL (0.6-1.3); POTASSIUM 4.4 mmol/L (3.5-5.1); TOTAL BILIRUBIN 0.5 mg/dL (<0.1-1.0); TOTAL PROTEIN 7.8 g/dL (6.4-8.2)
[2020-07-02 10:59] LABS: ESR (SEDRATE) 7 mm/hr (0-30)
--- NOTE | 2020-07-02 11:25 | EKG ---
[place] [address] ELECTROCARDIOGRAM REPORT Name: JUNIOR ZAPIEN Room: [facility]#: [id number] Admission: 07/02/20 Attend Phys: Malcolm Garcia Discharge: Date of : 52 Date of Service: 07/02/20 1009 Report #: [id number] THIS REPORT FOR: //name// [facility] Test Date: 2020-07-02 Test Time: 10:09:50 Pat Name: JUNIOR ZAPIEN Department: Room: Gender: F Rolls Mill Operator: : 1950 Requested By: Jerrod Medina Order Number: [id number] Reading MD: Gopi Solano Measurements Intervals [place] Rate: 78 P: 55 OK: 179 QRS: -34 QRSD: 94 T: 25 QT: 381 QTc: 434 Interpretive Statements Sinus rhythm Left axis deviation Abnormal R-wave progression, early transition Compared to ECG 12/11/2019 10:19:53 No significant changes Electronically Signed On 07-02-2020 11:25:18 CDT by Gopi Solano [email or web address] <ELECTRONICALLY SIGNED> By: Gopi Solano MD, FAC 07/02/20 1125 1009 1009 Gopi Solano MD, [facility] /EPI
== END ==
LOC: M.LAB 09:39
PROVIDERS: ATTEND Orthopaedic Surgery
DX: Z01.812 Encounter for preprocedural laboratory examination (principal)

== ENCOUNTER 2020-07-12 05:28 | Inpatient (IN) | payer MEDICARE, OTHER ==
[~2020-07-12] VITALS: Ht 167.6 cm; Wt 79.4 kg
--- NOTE | ~2020-07-12 | OP ---
[address] [address] OPERATIVE REPORT Name: ZAPIENJUNIOR Room: [address]#: [id number] Admission: 07/12/20 Attend Phys: Malcolm Herring Discharge: 07/16/20 Date of : 52 Report #: [id number] THIS REPORT FOR: cc: Aimee Napier Linda J. DO Cornett, Alan D. 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 PROCEDURE: Revision of right total hip arthroplasty, femoral and acetabular components. SURGEON: Jerrod Medina DO TICKET DISPATCHER: Wilver Lemon DO ANESTHESIA: General with local periarticular block. FLUIDS: Lactated Ringer's. ANTIBIOTICS: 600 mg clindamycin IV preoperatively. DRAINS: None. SPECIMENS: None. ESTIMATED BLOOD LOSS: 200 mL. COMPLICATIONS: None. ORTHOPEDIC IMPLANTS: Biomet G7 OsseoTi 58 mm diameter multi-hole acetabular shell with a 46 mm in diameter dual mobility liner, a 46 mm diameter ArCom dual mobility head with a 28 mm Biolox head with +4 mm neck length taper adapter. Other 1 gram of tranexamic acid IV preoperatively. HISTORY: The patient is a 69-year-old female with a history of right total hip arthroplasty done by Dr. Mendes approximately 8 years ago. She has developed increasing right hip pain. Radiographs reveal eccentric polyethylene wear with verticality in the acetabular component. Preoperative workup ruled out [facility] [address] [place] [address] OPERATIVE REPORT Name: JUNIOR ZAIPEN Room: [address]#: [id number] Admission: 07/12/20 Attend Phys: Malcolm Herring Discharge: 07/16/20 Date of : 52 Report #: [id number] infection. Recommended proceeding to revision of the femoral head and acetabular components. Risks, benefits, complications, indications, alternatives were discussed. She has voiced understanding, signed consent and elected to proceed. Risks include, but are not limited to fracture, infection, neurovascular injury, continued pain, loss of motion, need for subsequent revision surgery, leg length inequality, instability, dislocation of the right hip joint, DVT, PE, KS, stroke, and even . DESCRIPTION OF PROCEDURE: The patient was taken to the operative suite, placed in supine position, given benefit of general anesthetic, placed on a [place] table against a perineal post. Both feet placed in traction boots. Right hip sterilely prepped and draped in usual fashion. Proper operative sites confirmed standard timeout technique. A direct anterior approach was taken to the right hip. Lateral circumflex vessels were identified, cauterized and incised. Anterior capsule was exposed. It was treated with Aquamantys and an anterior capsulectomy was performed. Continued debridement of pseudocapsule was performed in order to expose the entirety of the acetabular rim. Traction was placed through the right lower extremity to allow me to disengage the right femoral head with an offset bone tamp in light hammer blows. I then dislocated the hip. Appropriate capsular releases were performed along with leg positioning and the external elevating hook of the [place] table. I was able to achieve appropriate proximal femoral exposure. The head was removed. There was no evidence of loosening of the femoral component. I turned my attention back to the acetabular component where a curved osteotome was used to disengage the polyethylene liner. There was one acetabular screw, which was removed and then I utilized 54 mm Explant truncated blades both short and full, to disengage the acetabular component from the pelvis. This was done with minimal to no bone loss. Reaming was initiated upwards in a sequential fashion to a size 57 mm diameter reamer. C-arm fluoroscopic images confirmed appropriate depth and circumference of reaming. Thorough irrigation showed circumferential punctate bleeding in the acetabulum. I then implanted the above-mentioned acetabular shell in a press-fit fashion under C-arm fluoroscopic guidance. Four 6.5 mm bone screws were placed for additional acetabular fixation. I then implanted the above-mentioned acetabular liner. I turned my attention back to the proximal femur, where trialing was performed and I deemed a +4 mm neck length adapter was most appropriate. I constructed the dual mobility head construct on the back table. The head was impacted on the Manzano taper. The hip was reduced. Intraoperative stability checks were excellent. Final C-arm fluoroscopic images confirmed appropriate implant placement sizing as well as leg length and offset. Thorough irrigation was performed. Hemostasis shown to be appropriate. Periarticular blocks utilized containing Marcaine, morphine, Toradol, epinephrine and normal saline. Tensor fascia was closed with #1 Stratafix suture in a running fashion. Subcuticular closure was performed with 2-0 Vicryl in simple inverted interrupted fashion. Skin was closed with a running 3-0 Stratafix subcuticular suture with Dermabond on the skin. Sterile dressings [address] [address] OPERATIVE REPORT Name: JUNIOR ZAPIEN Malcolm Room: [address]#: [id number] Admission: 07/12/20 Attend Phys: Malcolm Herring Discharge: 07/16/20 Date of : 52 Report #: [id number] were applied. The patient tolerated the procedure well. Sponge and needle counts were correct x 2. The patient was taken to recovery in stable condition. IJerrod DO, attest that I was present and scrubbed in for the entirety of the case excluding skin closure. By: [id number] Freddy Medina DO /nt
[~2020-07-12 05:28] MED LIST changes: -HYDROCHLOROTHIA25 M1 PO; -NEURONTIN 300M300 M2 PO; -ONDANSETRON HCL4 M2 PO
[2020-07-12 13:02] VITALS: BP 139/71
[2020-07-12 16:00] VITALS: BP 107/63
[2020-07-12 20:00] VITALS: BP 102/48
[2020-07-13] VITALS (7 sets, daily range): BP systolic 111–148; BP diastolic 41–77
[2020-07-13 04:28] LABS: HEMATOCRIT 33.4 % (37.0-47.0); HEMOGLOBIN 11.5 gm/dL (12.0-15.0)
[2020-07-14 03:42] VITALS: BP 125/52
[2020-07-14 04:04] LABS: HEMATOCRIT 33.2 % (37.0-47.0); HEMOGLOBIN 11.4 gm/dL (12.0-15.0); MCH 31.7 pg (26.0-34.0); MCHC 34.4 g/dL (28.0-37.0); MCV 92.1 fL (80.0-100.0); MPV 7.2 fl. (7.2-11.1); RBC 3.61 mil/uL (4.20-5.00); WBC 8.8 thou/uL (4.0-11.0)
[2020-07-14 04:19] LABS: CALCIUM 8.6 mg/dL (8.5-10.1); CREATININE 0.7 mg/dL (0.6-1.3); POTASSIUM 3.8 mmol/L (3.5-5.1)
[2020-07-14 07:20] VITALS: BP 121/61
[2020-07-14 16:00] VITALS: BP 118/52
[2020-07-14 20:30] VITALS: BP 110/55
[2020-07-15 08:13] VITALS: BP 120/57
[2020-07-15 14:23] VITALS: BP 120/57
[2020-07-15 15:52] VITALS: BP 123/63
[2020-07-15 19:40] VITALS: BP 126/59
[2020-07-16 04:18] LABS: CALCIUM 8.6 mg/dL (8.5-10.1); CREATININE 0.9 mg/dL (0.6-1.3)
[2020-07-16 04:19] LABS: HEMATOCRIT 30.7 % (37.0-47.0); HEMOGLOBIN 10.5 gm/dL (12.0-15.0); MCH 31.3 pg (26.0-34.0); MCHC 34.3 g/dL (28.0-37.0); MCV 91.2 fL (80.0-100.0); MPV 7.7 fl. (7.2-11.1); RBC 3.36 mil/uL (4.20-5.00); RDW-CV 12.7 % (10.5-14.5); WBC 7.5 thou/uL (4.0-11.0)
[2020-07-16 07:35] VITALS: BP 109/45
[2020-07-16] MEDS ORDERED: HYDROCHLOROTHIA25 M1 PO (13:19)
[2020-07-16] MEDS ORDERED: NEURONTIN 300M300 M2 PO (13:19)
[2020-07-16] MEDS ORDERED: ELIQUIS5 MG PO (13:20)
[2020-07-16] MEDS ORDERED: ONDANSETRON HCL4 M2 PO (13:56)
[2020-07-16 14:43] VITALS: BP 120/57
[2020-07-16 16:28] VITALS: BP 120/57
== END 2020-07-16 16:05 | disposition home health service (06) | DRG 466 ==
LOC: M.ORTHSURG 05:28 → M.TBA 05:56 → M.ORTHSURG 12:19
PROVIDERS: Internal Medicine; Orthopaedic Surgery; ADMIT Internal Medicine; ATTEND Internal Medicine
PROC: 0SP90JZ Removal of Synthetic Substitute from Right Hip Joint, Open Approach (ICD-10-PCS; principal; 2020-07-12)
PROC: 0SR903A Replacement of Right Hip Joint with Ceramic Synthetic Substitute, Uncemented, Open Approach (ICD-10-PCS; principal; 2020-07-12)
DX: T84.090A Other mechanical complication of internal right hip prosthesis, initial encounter (principal); J96.01 Acute respiratory failure with hypoxia; R71.0 Precipitous drop in hematocrit; I10 Essential (primary) hypertension; X58.XXXA Exposure to other specified factors, initial encounter; Y83.8 Other surgical procedures as the cause of abnormal reaction of the patient, or of later complication, without mention of misadventure at the time of the procedure; Y92.89 Other specified places as the place of occurrence of the external cause
CPT/HCPCS: 58776